=== PATIENT | male | born 1985 | race Caucasian/White ===

== ENCOUNTER 2023-03-19 08:41 | Emergency (ER) | payer BC, SELFPAY ==
[2023-03-19 08:51] VITALS: BP 137/91; PULSE 77; RESP 16; TEMP 36.8; O2SAT 99
--- NOTE | 2023-03-19 09:34 | ED.GENADULT ---
HPI - General Adult General Chief complaint: Skin/Abscess/Foreign Body Stated complaint: Rash Source: patient Mode of arrival: ambulatory Limitations: no limitations History of Present Illness HPI narrative: Patient presents for evaluation of pruritic rash for the last week. Symptoms are present to extremities x 4 and inguinal region. He states he was exposed to poison alejandra the day prior to symptom onset. He has been using hydrocortisone cream and calamine lotion with little improvement. He has also been taking cool showers. Denies any difficulty breathing or swallowing. Related Data Allergies Allergy/AdvReac Type Severity Reaction Status Date / Time cefaclor Allergy Unknown UNKNOWN Verified 03/19/23 09:11 Review of Systems Review of Systems: CONSTITUTIONAL: Denies fever, chills, or sweats. EYES: Denies visual changes, redness, or discharge. ENT: Denies rhinorrhea, congestion, sore throat, or otalgia. CARDIOVASCULAR: Denies chest pain, palpitations, or edema. RESPIRATORY: Denies cough or dyspnea. GASTROINTESTINAL: Denies abdominal pain, nausea, vomiting, or diarrhea. GENITOURINARY: Denies dysuria or hematuria. SKIN: Reports pruritic rash to extremities x4 and inguinal regions MUSCULOSKELETAL: Denies back pain, joint pain, or myalgia. NEUROLOGIC: Denies headache, numbness, dizziness, or weakness. PSYCHIATRIC: Denies anxiety or depression. [facility] Past Medical History Medical History No pertinent past medical history Surgical History Surgical History No pertinent past surgical history Family History Family History Mother Family history non-contributory Social History Social History Smoking status: Never smoker Substance use: never Gender identity (if verbalized by the patient): Male Sexual Orientation (if Verbalized by the Patient): Straight or Heterosexual Spiritual care concerns: No Exam Narrative: GENERAL: Well-appearing, well-nourished, and in no acute distress. HEAD: Normocephalic, atraumatic. EYES: PERRLA and EOMI. ENT: Nares clear, no rhinorrhea or epistaxis. Mucous membranes moist. Oropharynx without tonsillar hypertrophy exudate or other lesions. Bilateral TMs pearly kelley nonbulging NECK: Supple. No adenopathy or masses. No carotid bruits or JVD CHEST: Clear to auscultation. No respiratory distress. No wheezes rales or rhonchi HEART: Regular rate and rhythm. No murmur heard. Normal peripheral pulses. ABDOMEN: Soft, nontender, nondistended, normal active bowel sounds. EXTREMITIES: Normal range of motion. No edema. SKIN: Vesicular and erythematous rash to extremities x4 in patchy distribution NEURO: No focal deficits. Alert and oriented x3. PSYCH: Normal mood and affect. Course Course Emergency Course: This is a 37-year-old male who presented for evaluation of pruritic rash to extremities x4 and inguinal region. Exam consistent with poison alejandra. Will discharge with prednisone. Benadryl for itching orally. Advised continued use with calamine lotion avoid other lotions. Follow up with primary provider. Go to the ER for worsening symptoms. Pt in agreement with plan of care. Level of Care: Express Care Visit Vital Signs Vital signs: Vital Signs Temperature 36.8 C 03/19/23 08:51 Pulse Rate 77 03/19/23 08:51 Respiratory Rate 16 03/19/23 08:51 Blood Pressure 137/91 H 03/19/23 08:51 Pulse Oximetry 99 03/19/23 08:51 Oxygen Delivery Room Air 03/19/23 08:51 Temperature 36.8 C 03/19/23 08:51 Pulse Rate 77 03/19/23 08:51 Respiratory Rate 16 03/19/23 08:51 Blood Pressure 137/91 H 03/19/23 08:51 Pulse Oximetry 99 03/19/23 08:51 Oxygen Delivery Room Air 03/19/23 08:51 Medical Decision Making Vital
== END 2023-03-19 09:22 | disposition home or self-care (01) ==
PROVIDERS: Emergency Provider Nurse Practitioner
DX: L23.7 Allergic contact dermatitis due to plants, except food (principal)
CPT/HCPCS: 99213; G0463

== ENCOUNTER 2024-05-31 12:09 | Emergency (ER) | payer BC, SELFPAY ==
[2024-05-31 12:15] VITALS: PULSE 74; RESP 18; O2SAT 99
--- NOTE | 2024-05-31 12:15 | PC.NURSE ---
RN CALLED TO REGISTRATION R/T PT C/O COUGH, SOB, CHEST PAIN. PT A&O, NO S/S OF DISTRESS, ENDORSES PAIN IN [id number] CHEST WITH COUGH AND MOVEMENT X WEEK. PT DENIES CARDIAC HX, DIZZINESS, CLAMMY/SWEATING, OR NAUSEA/VOMITING. PT STATED, I DON'T THINK IT'S CARDIAC, IT FEELS LIKE MUSCLE, BUT THAT'S WHY I'M HERE.
[2024-05-31 12:45] VITALS: BP 140/89; PULSE 70; RESP 17; TEMP 37.2; O2SAT 100
== END 2024-05-31 13:20 | disposition left against medical advice (07) ==
PROVIDERS: Emergency Provider Nurse Practitioner; PCP Internal Medicine
DX: Z53.21 Procedure and treatment not carried out due to patient leaving prior to being seen by health care provider (principal)
CPT/HCPCS: 99199